=== PATIENT | female | born 1995 | race Caucasian/White ===

== ENCOUNTER 2017-09-06 12:52 | Emergency (ER) | payer MEDICAID ==
[~2017-09-06] VITALS: Ht 160 cm; Wt 113.4 kg
[~2017-09-06 12:52] MED LIST: GILDESS1 EAC1 PO; NEXIUM40 MG PO; TRAMADOL 50 MG50 MG PO; VALIUM5 MG PO; VRAYLAR3 MG PO
[2017-09-06] MEDS ORDERED: LARIN FE 1-201 EACH PO (13:27)
[2017-09-06] MEDS ORDERED: BUSPIRONE HCL10 MG PO (13:27)
[2017-09-06] MEDS ORDERED: LOXAPINE50 MG PO (13:27)
[2017-09-06] MEDS ORDERED: ALL DAY ALLERGY10 M2 PO (13:28)
[2017-09-06] MEDS ORDERED: VRAYLAR6 MG PO (13:28)
[2017-09-06] MEDS ORDERED: NEXIUM40 MG PO (13:29)
[2017-09-06] MEDS ORDERED: CLONAZEPAM 1 MG1 M1 PO (13:29)
[2017-09-06] MEDS ORDERED: VISTARIL 25 MG25 M1 PO (13:29)
[2017-09-06 13:52] LABS: ABSOLUTE BASOPHILS 0.1 thou/uL (0.0-0.2); ABSOLUTE LYMPHOCYTES 2.8 thou/uL (0.8-5.3); ABSOLUTE MONOCYTES 0.5 thou/uL (0.0-1.2); ABSOLUTE NEUTROPHILS 7.8 thou/uL (1.6-8.1); BASOPHILS 0.9 %; EOSINOPHILS 0.2 %; HEMATOCRIT 41.6 % (37.0-47.0); HEMOGLOBIN 14.1 gm/dL (12.0-15.0); LYMPHOCYTES 24.6 %; MCH 27.9 pg (26.0-34.0); MCV 82.3 fL (80.0-100.0); MONOCYTES 4.6 %; MPV 7.6 fl. (7.2-11.1); NUCLEATED RBCS 0 /100WBC; PLATELET COUNT* 317 thou/uL (150-400); POLYS 69.7 %; RBC 5.05 mil/uL (4.20-5.00); RDW-CV 13.7 % (10.5-14.5); WBC 11.2 thou/uL (4.0-11.0)
[2017-09-06 13:56] LABS: CALCIUM 9.4 mg/dL (8.5-10.1); CREATININE 0.7 mg/dL (0.6-1.3); POTASSIUM 4.3 mmol/L (3.5-5.1)
[2017-09-06 14:01] LABS: ALBUMIN 3.4 g/dL (3.4-5.0); TOTAL BILIRUBIN 0.3 mg/dL (<0.1-1.0); TOTAL PROTEIN 7.6 g/dL (6.4-8.2)
[2017-09-06 15:49] LABS: URINE BILIRUBIN NEGATIVE (Negative); URINE BLOOD TRACE (Negative); URINE CLARITY CLEAR; URINE COLOR YELLOW; URINE GLUCOSE-RANDOM NEGATIVE (Negative); URINE KETONES TRACE (Negative); URINE LEUKOCYTES-REFLEX NEGATIVE (Negative); URINE NITRITE-REFLEX NEGATIVE (Negative); URINE PROTEIN NEGATIVE (Negative); URINE SPECIFIC GRAVITY 1.015 (1.005-1.030); URINE UROBILINOGEN 0.2 E.U./dl (0.2-1.0)
--- NOTE | 2017-09-06 16:44 | EKG ---
[place] [address] ELECTROCARDIOGRAM REPORT Name: JORGE WALLS Room: [facility]#: [id number] Admission: 09/06/17 Attend Phys: Discharge: Date of : [birth year] Report #: [id number] THIS REPORT FOR: //name// [facility] ED Test Date: 2017-09-06 Test Time: 13:45:12 Pat Name: JORGE WALLS Department: Room: Gender: F Architect Internship: JAMEL : 1995 Requested By: Karla Laws Order Number: [id number] MD: Augustin Hernandez Measurements Intervals [place] Rate: 101 P: 24 MI: 158 QRS: 71 QRSD: 76 T: 8 QT: 330 QTc: 428 Interpretive Statements Sinus tachycardia Probable left atrial enlargement No previous ECG available for comparison Electronically Signed On 09-06-2017 16:44:04 CDT by Augustin Hernandez [email or web address] <ELECTRONICALLY SIGNED> By: Augustin Hernandez MD, [facility] 09/06/17 1644 1345 1345 Augustin Hernandez MD, FACC /EPI
[2017-09-06] MEDS ORDERED: VENTOLIN HFA 1818 GM INH (16:47)
[2017-09-06 16:54] VITALS: BP 130/84
== END 2017-09-06 17:08 | disposition home or self-care (01) ==
LOC: M.ERS 12:52
PROVIDERS: Nurse Practitioner Family
DX: R06.00 Dyspnea, unspecified (principal); R06.02 Shortness of breath; Z90.49 Acquired absence of other specified parts of digestive tract; Z88.5 Allergy status to narcotic agent; Z88.6 Allergy status to analgesic agent; Z88.8 Allergy status to other drugs, medicaments and biological substances

== ENCOUNTER 2018-04-26 15:07 | Emergency (ER) | payer MEDICAID ==
[~2018-04-26] VITALS: Ht 160 cm; Wt 123.8 kg
[~2018-04-26 15:07] MED LIST changes: +ALL DAY ALLERGY10 M2 PO; +BUSPIRONE HCL10 MG PO; +CLONAZEPAM 1 MG1 M1 PO; +LARIN FE 1-201 EACH PO; +LOXAPINE50 MG PO; +VENTOLIN HFA 1818 GM INH; +VISTARIL 25 MG25 M1 PO; +VRAYLAR6 MG PO
[2018-04-26 16:00] LABS: URINE BILIRUBIN NEGATIVE (Negative); URINE BLOOD TRACE (Negative); URINE CLARITY CLEAR; URINE COLOR YELLOW; URINE GLUCOSE-RANDOM NEGATIVE (Negative); URINE KETONES NEGATIVE (Negative); URINE LEUKOCYTES-REFLEX NEGATIVE (Negative); URINE NITRITE-REFLEX NEGATIVE (Negative); URINE PROTEIN NEGATIVE (Negative); URINE SPECIFIC GRAVITY 1.015 (1.005-1.030); URINE UROBILINOGEN 0.2 E.U./dl (0.2-1.0)
[2018-04-26 16:11] LABS: ABSOLUTE BASOPHILS 0.1 thou/uL (0.0-0.2); ABSOLUTE EOSINOPHILS 0.1 thou/uL (0.0-0.7); ABSOLUTE LYMPHOCYTES 2.7 thou/uL (0.8-5.3); ABSOLUTE MONOCYTES 0.6 thou/uL (0.0-1.2); ABSOLUTE NEUTROPHILS 9.1 thou/uL (1.6-8.1); BASOPHILS 0.8 %; EOSINOPHILS 0.4 %; HEMATOCRIT 42.7 % (37.0-47.0); HEMOGLOBIN 14.5 gm/dL (12.0-15.0); LYMPHOCYTES 21.5 %; MCH 27.9 pg (26.0-34.0); MCHC 33.9 g/dL (28.0-37.0); MCV 82.4 fL (80.0-100.0); MONOCYTES 4.8 %; MPV 7.7 fl. (7.2-11.1); NUCLEATED RBCS 0 /100WBC; PLATELET COUNT* 334 thou/uL (150-400); POLYS 72.5 %; RBC 5.18 mil/uL (4.20-5.00); RDW-CV 13.5 % (10.5-14.5); WBC 12.6 thou/uL (4.0-11.0)
[2018-04-26 16:26] LABS: ALBUMIN 3.6 g/dL (3.4-5.0); CALCIUM 9.6 mg/dL (8.5-10.1); CREATININE 0.7 mg/dL (0.6-1.3); POTASSIUM 3.8 mmol/L (3.5-5.1); TOTAL BILIRUBIN 0.3 mg/dL (<0.1-1.0); TOTAL PROTEIN 8.1 g/dL (6.4-8.2)
[2018-04-26] MEDS ORDERED: ROBAXIN 750 MG750 M1 PO (17:07)
[2018-04-26 17:31] VITALS: BP 138/88
== END 2018-04-26 17:31 | disposition home or self-care (01) ==
LOC: M.ERS 15:07
PROVIDERS: Physician Assistant
DX: R25.2 Cramp and spasm (principal); R06.00 Dyspnea, unspecified; K21.9 Gastro-esophageal reflux disease without esophagitis; F25.9 Schizoaffective disorder, unspecified; Z90.49 Acquired absence of other specified parts of digestive tract; Z88.5 Allergy status to narcotic agent; Z88.6 Allergy status to analgesic agent; Z88.8 Allergy status to other drugs, medicaments and biological substances

== ENCOUNTER 2018-11-17 15:28 | Emergency (ER) | payer MEDICAID ==
[~2018-11-17] VITALS: Ht 160 cm; Wt 126.1 kg
[~2018-11-17 15:28] MED LIST changes: +ROBAXIN 750 MG750 M1 PO
[2018-11-17 16:16] LABS: URINE BILIRUBIN NEGATIVE (Negative); URINE BLOOD TRACE (Negative); URINE CLARITY CLEAR; URINE COLOR YELLOW; URINE GLUCOSE-RANDOM NEGATIVE (Negative); URINE KETONES NEGATIVE (Negative); URINE LEUKOCYTES-REFLEX NEGATIVE (Negative); URINE NITRITE-REFLEX NEGATIVE (Negative); URINE PROTEIN NEGATIVE (Negative); URINE SPECIFIC GRAVITY 1.025 (1.005-1.030); URINE UROBILINOGEN 0.2 E.U./dl (0.2-1.0)
[2018-11-17 16:32] LABS: ABSOLUTE BASOPHILS 0.1 thou/uL (0.0-0.2); ABSOLUTE EOSINOPHILS 0.1 thou/uL (0.0-0.7); ABSOLUTE LYMPHOCYTES 3.1 thou/uL (0.8-5.3); ABSOLUTE MONOCYTES 0.6 thou/uL (0.0-1.2); BASOPHILS 0.9 %; EOSINOPHILS 0.6 %; HEMATOCRIT 44.2 % (37.0-47.0); HEMOGLOBIN 15.1 gm/dL (12.0-15.0); LYMPHOCYTES 26.1 %; MCH 28.1 pg (26.0-34.0); MCHC 34.1 g/dL (28.0-37.0); MCV 82.4 fL (80.0-100.0); MONOCYTES 4.8 %; MPV 7.6 fl. (7.2-11.1); NUCLEATED RBCS 0 /100WBC; PLATELET COUNT* 321 thou/uL (150-400); POLYS 67.6 %; RBC 5.36 mil/uL (4.20-5.00); RDW-CV 13.8 % (10.5-14.5); WBC 11.8 thou/uL (4.0-11.0)
[2018-11-17 16:54] LABS: ALBUMIN 3.7 g/dL (3.4-5.0); CALCIUM 9.7 mg/dL (8.5-10.1); CREATININE 0.8 mg/dL (0.6-1.3); TOTAL BILIRUBIN 0.3 mg/dL (<0.1-1.0); TOTAL PROTEIN 7.8 g/dL (6.4-8.2)
[2018-11-17] MEDS ORDERED: BENTYL 20 MG TA20 M1 PO (18:08)
[2018-11-17] MEDS ORDERED: ONDANSETRON HCL4 M2 PO (18:08)
[2018-11-17] MEDS ORDERED: LOPERAMIDE 2 MG2 M1 PO (18:08)
[2018-11-17 18:28] VITALS: BP 155/99
== END 2018-11-17 18:29 | disposition home or self-care (01) ==
LOC: M.ERS 15:28
PROVIDERS: Nurse Practitioner Family
DX: K52.9 Noninfective gastroenteritis and colitis, unspecified (principal); H65.02 Acute serous otitis media, left ear; F20.9 Schizophrenia, unspecified; K21.9 Gastro-esophageal reflux disease without esophagitis; Z88.8 Allergy status to other drugs, medicaments and biological substances; Z88.5 Allergy status to narcotic agent; Z88.6 Allergy status to analgesic agent; Z88.2 Allergy status to sulfonamides; Z90.49 Acquired absence of other specified parts of digestive tract

== ENCOUNTER 2019-06-22 10:16 | Emergency (ER) | payer MEDICAID ==
[~2019-06-22] VITALS: Ht 160 cm; Wt 95.7 kg
[~2019-06-22 10:16] MED LIST changes: +BENTYL 20 MG TA20 M1 PO; +LOPERAMIDE 2 MG2 M1 PO; +ONDANSETRON HCL4 M2 PO
[2019-06-22] MEDS ORDERED: CEFDINIR300 MG PO (10:33)
[2019-06-22] MEDS ORDERED: OXTELLAR XR300 MG PO (10:34)
[2019-06-22] MEDS ORDERED: LARIN FE 1.5-31 EACH PO (10:34)
[2019-06-22 10:46] LABS: URINE BILIRUBIN NEGATIVE (Negative); URINE BLOOD 1+ (Negative); URINE CLARITY CLEAR; URINE COLOR YELLOW; URINE GLUCOSE-RANDOM NEGATIVE (Negative); URINE KETONES NEGATIVE (Negative); URINE LEUKOCYTES-REFLEX NEGATIVE (Negative); URINE NITRITE-REFLEX NEGATIVE (Negative); URINE PROTEIN NEGATIVE (Negative); URINE UROBILINOGEN 0.2 E.U./dl (0.2-1.0)
[2019-06-22 11:03] LABS: BACTERIA-REFLEX 1-9 Few /HPF (None Seen); CASTS None Seen /LPF (None Seen); CRYSTALS None Seen /LPF (None Seen); MUCUS None Seen strn/LPF (None Seen); SQUAMOUS >10 Many /LPF (0-3); URINE RBC 0-2 Rare /HPF (0-2); URINE WBC-REFLEX 0-5 Rare /HPF (0-5)
[2019-06-22 11:26] LABS: CALCIUM 8.9 mg/dL (8.5-10.1); CREATININE 0.9 mg/dL (0.6-1.3); POTASSIUM 4.6 mmol/L (3.5-5.1)
[2019-06-22] MEDS ORDERED: KEFLEX500 M1 PO (14:11)
[2019-06-22] MEDS ORDERED: FLEXERIL PO (14:11)
[2019-06-22 14:16] VITALS: BP 146/78
== END 2019-06-22 14:16 | disposition home or self-care (01) ==
LOC: M.ERS 10:16
PROVIDERS: Emergency Medicine Emergency Medical Services
DX: M54.5 Low back pain (principal); K21.9 Gastro-esophageal reflux disease without esophagitis; Z90.49 Acquired absence of other specified parts of digestive tract; Z88.1 Allergy status to other antibiotic agents; Z88.2 Allergy status to sulfonamides; Z88.6 Allergy status to analgesic agent; Z88.8 Allergy status to other drugs, medicaments and biological substances